=== PATIENT | female | born 1960 | race American Indian/Alaskan Native ===

== ENCOUNTER 2017-03-20 16:22 | Emergency (ER) | payer BC ==
[2017-03-20 16:36] VITALS: BP 148/93
[2017-03-20] MEDS ORDERED: NORCO 5/325 PO ONE (17:03)
--- NOTE | 2017-03-20 17:08 | Emergency Department Report ---
ED Lower Extremity HPI - General Chief Complaint: Extremity Injury, Lower Stated Complaint: LT KNEE PAIN Time Seen by Provider: 03/20/17 16:57 Source: patient Mode of arrival: Ambulatory Limitations: No Limitations - History of Present Illness Initial Comments: pt is a 56 y/o aaf with hx PVD, osteoarthritis bilat knee, pt adv[facility] pt denies fall injury or trauma pain from buttocks to left lower leg described as 9/10 exacerbated by movement pt maintains ambulation and full knee extension, pt is [facility] advises that current medication not working for pain MD Complaint: knee injury, leg injury -: Gradual Injury: Knee: Left Type of Injury: other (denies fall or trauma ) Place: street/outdoors Severity: moderate Severity scale (0 -10): 8 Improves With: nothing Worsens With: weight bearing, movement, palpation Associated Symptoms: snap/pop sensation, swelling, tingling, ambulatory. denies : numbness - Related Data Previous Rx's Medication Instructions Recorded Last Taken Type Cyclobenzaprine [Flexeril] 10 mg PO TID PRN #30 tablet 03/20/17 Unknown Rx Naproxen [Naprosyn TAB] 500 mg PO BID #60 tablet 03/20/17 Unknown Rx Allergies Allergy/AdvReac Type Severity Reaction Status Date / Time levofloxacin [From Levaquin] Allergy Unknown Verified 03/20/17 16:32 ED Review of Systems ROS: Stated complaint: LT KNEE PAIN Other details as noted in HPI Constitutional: denies: chills, fever Eyes: denies: eye pain, eye discharge, vision change ENT: denies: ear pain, throat pain Respiratory: denies: cough, shortness of breath, wheezing Cardiovascular: denies: chest pain, palpitations Endocrine: no symptoms reported Gastrointestinal: denies: abdominal pain, nausea, diarrhea Genitourinary: denies: urgency, dysuria, discharge Musculoskeletal: joint swelling, arthralgia, myalgia. denies: back pain Skin: denies: rash, lesions Neurological: denies: headache, weakness, paresthesias Psychiatric: denies: anxiety, depression Hematological/Lymphatic: denies: easy bleeding, easy bruising ED Past Medical Hx - Surgical History Hx Cholecystectomy: Yes Hx Appendectomy: Yes Additional Surgical History: Hysterectomy, Right knee sx - Social History Smoking Status: Never Smoker Substance Use Type: Alcohol - Medications Home Medications: Home Medications Medication Instructions Recorded Confirmed Last Taken Type Cyclobenzaprine [Flexeril] 10 mg PO TID PRN #30 tablet 03/20/17 Unknown Rx Naproxen [Naprosyn TAB] 500 mg PO BID #60 tablet 03/20/17 Unknown Rx ED Physical Exam - General Limitations: No Limitations General appearance: alert, in no apparent distress - Head Head exam: Present: atraumatic, normocephalic - Eye Eye exam: Present: normal appearance - ENT ENT exam: Present: mucous membranes moist - Neck Neck exam: Present: normal inspection - Respiratory Respiratory exam: Present: normal lung sounds bilaterally. Absent: respiratory distress - Cardiovascular Cardiovascular Exam: Present: regular rate, normal rhythm. Absent: systolic murmur, diastolic murmur, rubs, gallop - GI/Abdominal GI/Abdominal exam: Present: soft, normal bowel sounds - Rectal Rectal exam: Present: deferred - Extremities Exam Extremities exam: Present: tenderness, normal capillary refill, pedal edema, joint swelling. Absent: calf tenderness (left posterior calf tenderness to palption, negative homans sign ) - Expanded Lower Extremity Exam Left Hip exam: Present: full ROM Upper Leg exam: Present: normal inspection, full ROM Knee exam: Present: tenderness, swelling, pain w/ pronation/supination, full knee extension. Absent: abrasion, laceration, ecchymosis, deformity, crepidus, dislocation, erythema, effusion, posterior draw sign, pain/laxity with valgus, pain/laxity with varus Lower Leg exam: Present: tenderness, swelling. Absent: abrasion, laceration, ecchymosis, deformity, crepidus, dislocation, erythema, palpable cord, Dejuan's sign Ankle exam: Present: full ROM, swelling. Absent: normal inspection, tenderness Foot/Toe exam: Present: normal inspection, full ROM Neuro vascular tendon exam: Absent: no vascular compromise, pulse deficit, abnormal cap refill, motor deficit, sensory deficit, tendon deficit, extremity cold to touch, pallor, abnormal 2-point discrimination, decreased fine/light touch, foot drop Gait: Positive: observed and normal - Back Exam Back exam: Present: normal inspection, full ROM. Absent: tenderness, CVA tenderness (R), CVA tenderness (L), muscle spasm, paraspinal tenderness, vertebral tenderness, rash noted - Neurological Exam Neurological exam: Present: alert, oriented X3, CN II-XII intact, normal gait, reflexes normal. Absent: motor sensory deficit - Psychiatric Psychiatric exam: Present: normal affect, normal mood - Skin Skin exam: Present: warm, dry, intact, normal color. Absent: rash, cyanosis, erythema, ecchymosis ED Course Vital Signs 03/20/17 03/20/17 16:32 17:08 Temperature 98.2 F Pulse Rate 72 Respiratory 17 20 Rate Blood Pressure 148/93 O2 Sat by Pulse 100 Oximetry ED Lower Extremity MDM - Radiology Data Radiology results: pending no fracture, no soft tissue abnormality - Medical Decision Making pt is a 56 y/o aaf with hx PVD, osteoarthritis bilat knee, pt advises increase in chronic pain today [facility] pt denies fall injury or trauma pain from buttocks to left lower leg described as 9/10 exacerbated by movement pt maintains ambulation and full knee extension, pt is pending MRI with [facility] doctor in 2-3 weeks advises that current medication not working for pain , exam: noted knee swelling, no drawer no click no pop no catch , pain to pronation and supination, joint is stable, theres is mild le edema pt on hctz 25mg po daily for same via pcp, given there was no new trauma and pain is chronic, knee xray: no fracture no soft tissue abnormality, plan: nsaids, muscle relaxant, continue knee brace, crutches, pt will follow up with [facility] doctor on 04/17/2017 for MRI and further evaluation of knee pain. Critical care attestation.: If time is entered above; I have spent that time in minutes in the direct care of this critically ill patient, excluding procedure time. ED Disposition Clinical Impression: Strain of knee and leg, left Qualifiers: Encounter type: initial encounter Qualified Code(s): S86.912A - Strain of unspecified muscle(s) and tendon(s) at lower leg level, left leg, initial encounter Disposition: TO HOME OR SELFCARE Is pt being admited?: No Does the pt Need Aspirin: No Condition: Good Instructions: Knee Pain (ED), Knee Immobilizer (ED), Crutch Instructions (ED) Prescriptions: Cyclobenzaprine [Flexeril] 10 mg PO TID PRN #30 tablet PRN Reason: Muscle Spasm Naproxen [Naprosyn TAB] 500 mg PO BID #60 tablet Referrals: PRIMARY CARE,MD [Primary Care Provider] - 3-5 Days Forms: Work/School Release Form(ED) Time of Disposition: 19:15
--- NOTE | 2017-03-21 09:29 | XRay Report ---
XRAY LEFT KNEE THREE VIEWS: 03/20/17 16:22:00 CLINICAL: Pain. FINDINGS: No fracture or dislocation. The joint spaces are normal. Suspect a small joint effusion. The soft tissues are normal. IMPRESSION: Probable small joint effusion but otherwise normal
== END 2017-03-20 19:24 | disposition home or self-care (01) ==
LOC: ED 16:22
DX: S86.912A Strain of unspecified muscle(s) and tendon(s) at lower leg level, left leg, initial encounter (principal); Z88.1 Allergy status to other antibiotic agents; X58.XXXA Exposure to other specified factors, initial encounter; Y93.89 Activity, other specified; Y99.9 Unspecified external cause status; Y92.89 Other specified places as the place of occurrence of the external cause

== ENCOUNTER 2020-04-04 13:17 | Outpatient (CLI) | payer OTHER ==
--- NOTE | 2020-04-04 14:44 | Mammography Report ---
BILATERAL DIGITAL SCREENING MAMMOGRAM WITH CAD HISTORY: SCREENING MAMMO TECHNIQUE: Routine digital mammographic imaging performed. This examination was interpreted with wellington rodríguez benefit of Computer-aided Detection analysis. COMPARISON: None available. FINDINGS: Breast Density: scattered fibroglandular appearance of the breast tissue. Digital CC and MLO views demonstrate no mammographic evidence of malignancy. IMPRESSION: No mammographic evidence of malignancy. If the clinical examination remains stable, recommend bilate ral mammogram in approximately one year. BIRADS 1: Negative. FURTHER INFORMATION: According to the [employer], yearly mammograms are recommend ed starting at age 40 and continuing as long as a woman is in good health. Clinical Breast Exams shou ld be part of a periodic health exam-about every 3 years for women in their 20s and 30s and every yea r for women 40 and over. Breast self exam is an option for women starting in their 20s. Any breast ch robb noted on a breast self exam should be reported promptly to the patient's healthcare provider. Br east MRI is recommended for women with an approximately 20-25% or greater lifetime risk of breast can cer, including women with a strong family history of breast or ovarian cancer and women who have been treated for Hodgkin's disease. A negative Mammography report should not discourage follow up or biopsy of a clinically significant f inding and/or abnormality. Dense breast tissue may obscure small neoplasms. The patient will be entered into a reminder system with a target due date for the next screening mamm ogram. Signer Name: Felice Joel MD Signed: 04/04/2020 2:39 PM Workstation Name: [id number]
== END 2020-04-04 13:18 | disposition home or self-care (01) ==
LOC: MAMMO 13:17
PROVIDERS: ATTEND Internal Medicine
DX: Z12.31 Encounter for screening mammogram for malignant neoplasm of breast (principal)
CPT/HCPCS: 77067